=== PATIENT | male | born 1950 | race Caucasian/White ===

== ENCOUNTER 2019-08-18 08:04 | Day surgery (SDC) | payer MEDICARE, OTHER ==
[2019-08-13 11:07] LABS: Urine Bacteria NONE SEEN /hpf (None Seen); Urine Blood Negative /uL (Negative); Urine Specific Gravity 1.014 (1.001-1.035); Urine WBC 1 /hpf (0 - 3)
[2019-08-13 11:13] LABS: Basophils # (auto) 0 10 ^3/uL (0-0.2); Basophils % (auto) 0.4 % (0.0-2.0); Eosinophils # (auto) 0.1 10 ^3/uL (0-0.8); Eosinophils % (auto) 1.3 % (0.0-7.0); Hemoglobin 14.8 g/dL (13.5-17.5); Lymphocytes # (auto) 1.6 10 ^3/uL (0.4-5.4); Lymphocytes % (auto) 26.5 % (10.0-50.0); Mean Corpuscular Hgb Conc. 33.7 g/dL (32.0-36.0); Mean Corpuscular Volume 89.1 fL (80.0-100.0); Monocytes # (auto) 0.4 10 ^3/uL (0-1.3); Monocytes % (auto) 6.4 % (0.0-12.0); Neutrophils # (auto) 3.9 10 ^3/uL (1.6-8.6); Neutrophils % (auto) 65.4 % (37.0-80.0); Nucleated Red Blood Cells % 0.1 %; Platelet Count (auto) 240 10^3/uL (140-450); Red Blood Cells 4.94 10^6/uL (4.5-5.90)
[2019-08-13 11:17] LABS: INR 1.18 (0.9-1.15); Partial Thromboplastin Time 30.2 sec (23.64-32.05)
[2019-08-13 11:24] LABS: Albumin 3.6 g/dL (3.4-5.0); Calcium 8.7 mg/dL (8.5-10.1); Potassium 4.1 mmol/L (3.5-5.1)
[2019-08-13 11:26] LABS: BUN/Creatinine Ratio 11.6; Bilirubin, Total 0.4 mg/dL (0.2-1.0); Total Protein 7.3 g/dL (6.4-8.2)
[~2019-08-18] VITALS: Ht 172.7 cm; Wt 102.5 kg
[~2019-08-18 08:04] MED LIST: ASCO100076 PO; ATOR20TA50 PO; CHOL500021 PO; FENO48TA12 PO; GABA300C10 PO; HYDR-531 PO; MAGN400C3 PO; MELA5TAB11 PO; POTA-167 PO; RIVA20TA PO
[2019-08-18] MEDS ORDERED: ceFAZolin 1GM/50ML 50 ML IV ONE (08:32)
[2019-08-18] MEDS ORDERED: fentaNYL CITRATE 100 MCG/2 ML VL ONE (09:13)
[2019-08-18] MEDS ORDERED: PROPOFOL 10 MG/ML 20 ML IV ONE (09:14)
[2019-08-18] MEDS ORDERED: ONDANSETRON HCL 4 MG/2 ML VIAL ONE (09:14)
[2019-08-18] MEDS ORDERED: MIDAZOLAM HCL 1MG/1ML-2 ML VIAL ONE (09:14)
[2019-08-18] MEDS ORDERED: SODIUM CHLORIDE LOCK 10 ML ONE (09:14)
[2019-08-18] MEDS ORDERED: ROPIVACAINE 0.5% (5MG/ML) 20ML AMPULE IJ ONE (09:18)
[2019-08-18] MEDS ORDERED: NEOMYCIN-BACITRACIN-POLYM 15GM TOP OINT TOP ONE (09:26)
[2019-08-18] MEDS ORDERED: LIDOCAINE 1% HCL (LOCAL ANESTH.) INJ 20ML MDV ONE (09:28)
[2019-08-18] MEDS ORDERED: SUCCINYLCHOLINE CHLORIDE 20 MG/ML 10ML VIAL IV ONE (09:29)
[2019-08-18] MEDS ORDERED: methylPREDNISolone ACETATE 80 MG/ML VL ONE (09:49)
[2019-08-18 10:45] VITALS: BP 135/76
== END 2019-08-18 11:39 | disposition home or self-care (01) ==
LOC: SUR 08:04
PROVIDERS: ATTEND Podiatrist Foot & Ankle Surgery
DX: M72.2 Plantar fascial fibromatosis (principal); M21.961 Unspecified acquired deformity of right lower leg; G47.33 Obstructive sleep apnea (adult) (pediatric); E66.9 Obesity, unspecified; I25.2 Old myocardial infarction; G62.9 Polyneuropathy, unspecified; I25.10 Atherosclerotic heart disease of native coronary artery without angina pectoris; Z68.30 Body mass index [BMI] 30.0-30.9, adult; Z98.890 Other specified postprocedural states; Z79.899 Other long term (current) drug therapy; Z91.041 Radiographic dye allergy status
CPT/HCPCS: 29893; 29999; 36415; 80053; 81001; 85025; 85610; 85730; J0330; J0690; J1040; J2001; J2250; J2405; J2704; J2795; J3010